=== PATIENT | female | born 2000 | race Caucasian/White ===

== ENCOUNTER 2022-03-25 13:10 | Emergency (ER) | payer BC ==
[2022-03-25] MEDS ORDERED: Metoclopramide 10 MG Tab PO ONE (13:11)
[2022-03-25 14:10] LABS: AMPHETAMINES,URINE NEGATIVE (NEGATIVE); BARBITURATES,URINE NEGATIVE (NEGATIVE); BENZODIAZEPINE,URINE NEGATIVE (NEGATIVE); MDMA (ECSTASY), URINE NEGATIVE (NEGATIVE); METHADONE,URINE NEGATIVE (NEGATIVE); METHAMPHETAMINES,URINE NEGATIVE (NEGATIVE); OPIATES,URINE NEGATIVE (NEGATIVE); OXYCODONE,URINE NEGATIVE (NEGATIVE); PHENCYCLIDINE,URINE NEGATIVE (NEGATIVE); TCA,URINE NEGATIVE (NEGATIVE)
[2022-03-25 14:10] LABS: ANION GAP 14.2 mEq/L (7-13); CHLORIDE,CL 106 mmol/L (98-107); SODIUM,NA 140 mmol/L (136-145)
[2022-03-25 14:15] LABS: ESTIMATED GFR 97 mL/min (>=60)
[2022-03-25] MEDS ORDERED: Dicyclomine 10 MG Cap PO ONE (14:24)
[2022-03-25] MEDS ORDERED: Metoclopramide 10 MG/2 ML SDV IVPUSH ONE (14:25)
[2022-03-25] MEDS ORDERED: Iopamidol 612 MG/ML 100 ML Bottle IVPUSH ONE (14:26)
[2022-03-25] MEDS ORDERED: Ketorolac 30 MG/ML SDV IVPUSH ONE (15:38)
[2022-03-25] MEDS ORDERED: Metoclopramide 10 MG Tab ONE (15:41)
== END 2022-03-25 15:58 | disposition home or self-care (01) ==
LOC: DL.ED 13:10
DX: R10.84 Generalized abdominal pain (principal); G89.29 Other chronic pain; R31.29 Other microscopic hematuria; R19.7 Diarrhea, unspecified; E80.6 Other disorders of bilirubin metabolism; Z88.0 Allergy status to penicillin
CPT/HCPCS: 36415; 74177; 80053; 80305; 80307; 81001; 81025; 82150; 83605; 83690; 83735; 85025; 86140; 96374; 96375; 99284; A9270; J1885; J2765; Q9967